=== PATIENT | female | born 1990 | race Caucasian/White ===

== ENCOUNTER 2023-12-03 13:37 | Outpatient (CLI) | payer BC, SELFPAY ==
--- NOTE | 2023-12-03 13:45 | CRLHL7_ITS ---
For Patients: As a result of the Century Cures Act, medical imaging exams and procedure reports are released immediately into your electronic medical record. You may view this report before your referring provider. If you have questions, please contact your health care provider. INDICATION: First trimester scan, establish dates. COMPARISON: None. TECHNIQUE: Real-time fischer-scale imaging of the pelvis was performed. FINDINGS: Sonographic imaging demonstrates a single living intrauterine gestation. The embryo demonstrates a regular cardiac rate measuring 165 beats per minute. The embryo`s crown-rump length measurement of 2.2 cm corresponds to a gestational age of 9 weeks 0 days with a sonographic due date of July 07, 2024. There is a normal-appearing yolk sac measuring up to 3.4 mm. There are no gross abnormalities noted within the embryo at this early state of development. The placenta has not yet developed. The gestational sac has a normal appearance. Trace perigestational/subchorionic hemorrhage inferior to the gestational sac. The amount of fluid within the sac appears appropriate for gestational age. The cervix is closed. The myometrium appears normal. The right ovary is of normal size measuring 3.1 x 1.3 x 2.3 cm. Small right ovarian corpus luteum cyst of measuring 1.6 x 1.2 x 1.7 cm. The left ovary is not seen. There are no suspicious fluid collections noted in the cul-de-sac. IMPRESSION: Normal first trimester OB ultrasound exam. Gestational age calculated at 9 weeks 0 days with a sonographic due date of July 07, 2024. Dictated by Harley Patton MD @ 12/03/2023 3:47:06 PM (Electronically Signed)
== END 2023-12-03 13:38 | disposition home or self-care (01) ==
LOC: US 13:37
PROVIDERS: Visit Provider Registered Nurse
DX: Z34.91 Encounter for supervision of normal pregnancy, unspecified, first trimester (principal); Z3A.09 9 weeks gestation of pregnancy
CPT/HCPCS: 76817; 82728; 86592; 86703; 86704; 86706; 86762; 86787; 86803; 86850; 86900; 86901; 87086; 87340; 87491; 87591

== ENCOUNTER 2024-02-23 12:38 | Outpatient (CLI) | payer BC, SELFPAY ==
--- NOTE | 2024-02-23 13:00 | CRLHL7_ITS ---
For Patients: As a result of the Century Cures Act, medical imaging exams and procedure reports are released immediately into your electronic medical record. You may view this report before your referring provider. If you have questions, please contact your health care provider. HISTORY: anatomic survey. COMPARISON: Early OB ultrasound from 12/03/2023. TECHNIQUE: Ultrasound examination of the is performed with transabdominal technique. FINDINGS: A single intrauterine gestation is seen in breech presentation with regular cardiac activity at 144 beats per minute. The placenta is posterior and is free of the cervical os. The placental grade is 0 and the amniotic fluid volume is normal. Single deepest vertical pocket: Normal at 5.5 cm. The cervix is nondilated and measures 3.6 centimeters, normal length. BPD: 4.8 cm 20 weeks 3 days HC: 18.8 cm 21 weeks 1 day AC: 16.5 cm 21 weeks 4 days. Seventy-fifth percentile FL: 3.6 cm 21 weeks 3 days. The estimated age by ultrasound is 21 weeks 1 day, with an estimated date of delivery of 07/04/2024. This correlates well with the clinical age of 20 weeks 4 days the previous ultrasound. The ultrasound ratios are normal. The estimated weight of 420 grams is at the 87th percentile based on the clinical dates. The anatomic survey demonstrates normal appearing intracranial structures with a normal septum pellucidum and normal cerebellum. The nuchal thickness is normal at 3 mm, and the lateral ventricle is normal in diameter at 6 mm. The upper lip, 4 chamber heart, left and right ventricular outflow tracts, diaphragm, stomach, cord insertion site, 3-vessel cord, kidneys, bladder and spine are normal in appearance. IMPRESSION: 1. Single intrauterine gestation in breech presentation with regular cardiac activity. 2. Estimated gestational age is 21 weeks 1 day. 3. There has been appropriate interval growth. 4. The estimated weight of 420 grams is at the 87th percentile based on the clinical dates. Dictated by Duke Caledron MD @ 02/25/2024 12:26:36 PM (Electronically Signed)
== END 2024-02-23 12:39 | disposition home or self-care (01) ==
LOC: US 12:39
PROVIDERS: Visit Provider Registered Nurse
DX: Z34.92 Encounter for supervision of normal pregnancy, unspecified, second trimester (principal); Z3A.21 21 weeks gestation of pregnancy
CPT/HCPCS: 76805

== ENCOUNTER 2024-04-17 14:06 | Outpatient (CLI) | payer BC, SELFPAY | END 2024-04-17 14:07 | disposition home or self-care (01) | LOC: NFLDREF 14:07 | PROVIDERS: Visit Provider Physician Assistant | DX: Z34.93 Encounter for supervision of normal pregnancy, unspecified, third trimester (principal); O26.899 Other specified pregnancy related conditions, unspecified trimester; Z67.91 Unspecified blood type, Rh negative; R73.09 Other abnormal glucose; Z3A.28 28 weeks gestation of pregnancy | CPT/HCPCS: 86592; 86850; J2791 ==

== ENCOUNTER 2024-04-20 08:17 | Outpatient (CLI) | payer BC, SELFPAY | END 2024-04-20 08:18 | disposition home or self-care (01) | LOC: NFLDREF 04-28 08:09 | PROVIDERS: Visit Provider Physician Assistant | DX: R73.09 Other abnormal glucose (principal) | CPT/HCPCS: 82951; 82952 ==

== ENCOUNTER 2024-05-31 15:30 | Outpatient (CLI) | payer BC, SELFPAY | END 2024-05-31 15:31 | disposition home or self-care (01) | LOC: FRMREF 15:31 | PROVIDERS: Visit Provider Advanced Practice Midwife | DX: Z34.93 Encounter for supervision of normal pregnancy, unspecified, third trimester (principal); Z3A.34 34 weeks gestation of pregnancy | CPT/HCPCS: 82728 ==

== ENCOUNTER 2024-06-16 15:03 | Outpatient (CLI) | payer BC, SELFPAY | END 2024-06-16 15:04 | disposition home or self-care (01) | LOC: NFLDREF 06-18 02:30 | PROVIDERS: Visit Provider Advanced Practice Midwife | DX: O24.410 Gestational diabetes mellitus in pregnancy, diet controlled (principal); Z3A.36 36 weeks gestation of pregnancy | CPT/HCPCS: 87081; 87653 ==

== ENCOUNTER 2024-06-23 13:53 | Outpatient (CLI) | payer BC, SELFPAY ==
--- NOTE | 2024-06-23 14:00 | CRLHL7_ITS ---
For Patients: As a result of the Century Cures Act, medical imaging exams and procedure reports are released immediately into your electronic medical record. You may view this report before your referring provider. If you have questions, please contact your health care provider. OBSTETRICAL ULTRASOUND ??? FOLLOW-UP, 06/23/2024 INDICATION: GDM, growth. CLINICAL HISTORY: ANA by LMP: 07/08/2024 Gestational Age: 37 weeks 6 days COMPARISON: 02/23/2024, 12/03/2023 TECHNIQUE: Real-time fischer-scale imaging of the fetus was performed transabdominal. FINDINGS: Fetus: Single Cervix: Not visualized positioning: Vertex Amniotic fluid: 7.9 cm SDP Placenta technique: Transabdominal Placenta position: Posterior heart rate: 138 bpm BIOMETRY: BPD: 9.5 cm, 38 weeks 4 days, 86.3% HC: 34.8 cm, 40 weeks 3 days, 85.7% AC: 37.4 cm, 41 weeks 2 days, greater than 97% FL: 7.5 cm, 38 weeks 3 days, 66.5% FL/AC Ratio: 20.09% HC/AC ratio: 0.93 EFW: 4040 grams; 8 lbs. 15 oz. age by this ultrasound: 39 weeks 5 days ANA by this ultrasound: 06/25/2024 Percentile by ANA: Greater than 97% IMPRESSION: 1. Sonographic gestational age is 39 weeks 5 days and sonographic due date is 06/25/2024. Sonographic age is 13 days ahead of the clinical age. 2. Estimated weight is greater than 97th percentile. Abdominal circumference is greater than 97th percentile. TREVOR CHAVEZ M.D. Diagnostic Radiologist [email or web address] Transcribed: 12:[address]/Dictated by: Trevor Chavez MD @ 06/25/2024 9:01:00 PM (Electronically Signed)
== END 2024-06-23 13:54 | disposition home or self-care (01) ==
LOC: US 13:53
PROVIDERS: Visit Provider Advanced Practice Midwife
DX: O24.410 Gestational diabetes mellitus in pregnancy, diet controlled (principal); O36.63X0 Maternal care for excessive fetal growth, third trimester, not applicable or unspecified; Z3A.37 37 weeks gestation of pregnancy
CPT/HCPCS: 76816

== ENCOUNTER 2024-07-04 06:21 | Inpatient (IN) | payer BC, SELFPAY ==
[2024-07-04] VITALS (17 sets, daily range): BP systolic 113–153; BP diastolic 60–83; PULSE 72–109; RESP 16–20; TEMP 36.7–36.8; O2SAT 96–97
--- NOTE | 2024-07-04 06:41 | P.LDBA_ITS ---
Subjective History of Present Illness Narrative: Christi is a 33 yo at 39 3/7 weeks gestation being admitted to Labor and Delivery for spontaneous onset of labor. She reports contractions woke her up at 2 am. They started to become more regular around 4ish. At that time she had some bloody show. She denies any leaking of fluid. She was seen and evaluated yesterday for rule out ROM. Since she discharged from triage, she denies any additional leaking of fluid. She is coping well in labor. She has had multiple episodes of emesis this morning. She is supported in labor by her Edi. Her full history and physical was dictated by Taryn Lin CNM on 06/23/2024. Please see this for details. Specific Issues/Plans G 1 P 0 Partner: Edi Baby: Boy! H&P done by Taryn Lin CNM on 06/23/24 # BMI 32.2 and primip A1C: 5.3 Recommend daily low dose aspirin starting at 12 weeks to decrease risk of preeclampsia # Stress urinary incontinence for years. Worsening during . Referral placed for pelvic floor PT. # Anxiety. Never taken medication. Interested in seeing a therapist. Therapy referral placed. 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 Should have an abdominal US or CT to look for renal anomaly in the patient: does not need to be in the . # Hep B nonimmune. Discussed on 01/05/2024. Plans repeating the Hep B immunization course after . # Rh negative, her spouse is Rh(+). Rhogam at 28wks- done 04/17/24 # Celiac disease. Well controlled. # Gestational diabetes, diet controlled 1 hour GTT:165 3 hour GTT: 96H, 185H, 153, 122 Nutrition referral placed 04/20/2024 Weekly testing starting at 40 weeks? Growth at 37.6?weeks, >97% (4040g), SDP 7.9 Delivery recommended 39 0/7-40 6/7 weeks? Flu: Declined on 01/05/24. Covid: Declined on 01/05/24. [place]: Low risk for aneuploidy, male Tdap: Given 05/16/23 OB - Problem Based A/P Additional Plan (1) Pain during labor: Status: Acute (2) Spontaneous onset of labor: Status: Acute (3) GDM (gestational diabetes mellitus), class A1: Status: Acute (4) Anxiety: Status: Acute (5) 39 weeks gestation of : Status: Acute (6) Rh negative, antepartum: Status: Acute (7) Asthma: Status: Acute Plan ASSESSMENT:? 33 yo at 39.3 weeks gestation? complicated by:?Prepregnancy BMI 32, stress urinary incontinence, anxiety, bicornuate vs septate uterus, Hep b non-immune, RH negative, celiac disease, Gestational Diabetes diet controlled Labor type: Spontaneous, Early labor? Reassuring FHR Labor complicated by: GDM? GBS negative Rh negative? ? PLAN:? 1. Routine intrapartum cares as ordered. Continue with expectant management? 2. Monitoring per policy, continuous 3. Planning unmedicated . Desires water . Consent signed. Hep C negati ve. Candidate for analgesia of choice, if desired.?? 4. Patient encouraged to reposition and ambulate to promote physiologic labor and .? 5. GDM, will monitor blood sugar per protocol. She ate on the way in, will check a 2 hour postprandial this morning. 6. Anticipate ? Delivery/Labor/Induction Plan Plan: expectant management OB Result Labs Blood Type: A (-) negative OB Exam Physical Exam Vital signs: Pulse Rate 98 07/04/24 06:43 Blood Pressure 125/77 07/04/24 06:43 Blood Pressure Mean 93 07/04/24 06:43 Narrative: Vitals Reviewed Constitutional:? Alert and oriented x3 HEENT:? Normocephalic, atraumatic Neck:? Supple Lungs:? Clear to auscultation bilaterally Heart:? Regular rate and rhythm, no murmur, rub or gallop Abdomen:? Soft, nontender, and gravid. Vertex by Kashmir's, confirmed with cervical exam. Extremities:? No edema or erythema Cervix: 6 cm/80%/-1/vertex NST: 140 bpm with difficulty monitoring due to maternal position, RN working on getting a better FHR tracing; contractions every 2-3 minutes lasting Detailed Labor and Delivery Exam Patient Gravid: Yes
[2024-07-04] MEDS: OXYTOCIN 10 UNIT/ML INJ IM (10:39)
[2024-07-04] MEDS: LIDOCAINE 1 % PF 30 ML INJECTION (10:57)
[2024-07-04] MEDS: lidocaine HCL 2 % JELLY (TOP) STERILE 6 ML TOPICAL (10:57)
--- NOTE | 2024-07-04 11:27 | W.PM.VAGDE_ITS ---
OB Procedure Vag Delivery Mother Details Mother Details: The patient is a 33 year-old, 1, Para 0, admitted on 07/04/24 at 39.3 Days gestation. : 1 Para: 1 Weeks Gestation: 39.3 Admission Date: 07/04/24 Additional Details Amniotic Membrane Status: SROM Amniotic Membrane Rupture Date: 07/04/24 Amniotic Membrane Rupture Time: 09:27 Amniotic Membrane Fluid Description: Clear Analgesia/Anesthesia Type: None Waterbirth: Yes Pitcoin: Yes ([facility] only) Intrapartal Events: None Labor Onset: 06:18 Complete: 09:56 (presumed complete with spontaneous pushing ) Pushin:56 Heart: heart tones during second stage were difficult to trace due to maternal po sition, short second stage, and rapid descent. FHR traced and auscultation 115-125 and no decreases traced or heard. Delivery Details Delivery Date: 07/04/24 Delivery Time: 10:15 Route of delivery: Infant Gender: Male Viability: Alive; Heart Rate Present Position at Delivery: OA Delivery Details: Patient was admitted for SROM and progressed normally. SROM noted at 0927 with clear fluid. Patient was presumed complete with spontaneous pushing at 0956. of a viable male at 1015 in recumbent position in the tub. Vertex delivered OA. No nuchal cord or shoulder. Body delivered easily and without incident. passed to mothers abdomen with a vigorous cry. Cord was clamped and cut at > 5 minutes. APGARS were 8 at one minute and 9 at five minutes respectively. Mouth was bulb suctioned. Intact placenta with a 3 vessel cord delivered spontaneously at 1045. Significant trailing membranes which took over 10 minutes to tease out with a ring forceps. Did appear to deliver completely but I did review signs of retained membranes including infection and bleeding. Fundus firm. 2nd degree identified and repaired in typical fashion. QBL 206mL in the dr miguel and a weighed clot and EBL 100 in the tub for a total blood loss of 306. Mother and baby stable; mother plans to breastfeed. Infant weight 9lb 0oz.? 1 Minute Interval Total Score: 8 5 Minute Interval Total Score: 9 Additional Details Shoulder Dystocia: No Placenta Delivery Time: 10:45 Placental Delivery Description: Spontaneous Delivery repair: Vicryl Procedure Done: Global Blood Loss: 306 (QBL 206, EBL 100) Laceration: Perineal - 2nd Degree Episiotomy Description: None Blood Loss Measurement Type: QBL Bakri Used: No Sponge/Need Count Correct: Yes Cord Vessel Description: 3 Vessels Event Summary Status: Mother and infant were stable after delivery. Disposition: floor
[2024-07-05 05:20] VITALS: BP 117/82; PULSE 84; RESP 16; TEMP 36.3; O2SAT 97
--- NOTE | 2024-07-05 07:49 | P.OBPN_ITS ---
OB - PN:Subj Subjective Date Seen: 07/05/24 Narrative: Christi is a 33 year old who was admitted for and proceeded to have a vaginal with a 2nd degree laceration that was repaired.The patient feels well.? The pain is well controlled with current medications.? She has no new co mplaints.? Urinary output is adequate and she is voiding without difficulty.? Has a good appetite, is tolerating a general diet, is passing flatus, and has not had a bowel movement.? Has small amount of rubra lochia.? She is ambulating well. She is and nipple whitley have assisted with the latch. She is also utilizing S&S. Nursing and are working with her. ? OB - PN: Obj Exam Physical Exam: Vital signs: Temp Pulse Resp BP Pulse Ox O2 Del Method 97.4 F L 84 16 117/82 97 Room Air 07/05/24 05:20 07/05/24 05:20 07/05/24 05:20 07/05/24 05:20 07/05/24 05:20 07/05/24 05:20 Narrative: GENERAL APPEARANCE:? normal affect, alert, no distress MOOD:? appropriate CHEST:? clear to auscultation HEART:? regular rate and rhythm ABDOMEN:? soft, non-tender the uterine fundus is At Umbilicus, Midline and is appropriate for the stage of recovery. PERINEUM:? mild edema of the perineum, there is a Perineal Laceration,? with no erythema. Well approximated with mild edema. EXTREMITIES:? normal and minimal edema OB - PN: A/P Delivery Assessment and Plan (1) care and examination of lactating mother: Status: Acute (2) GDM (gestational diabetes mellitus), class A1: Status: Acute (3) Anxiety: Status: Acute (4) Rh negative, antepartum: Status: Acute (5) Asthma: Status: Acute Plan Comments: PP day #1 Routine care Should see as desired Consider 2 hr glucose in the morning Anticipate discharge 07/06/2024
[2024-07-05 08:21] VITALS: BP 117/80; PULSE 82; RESP 16; TEMP 36.4; O2SAT 97
[2024-07-05 09:46] VITALS: BP 117/80; PULSE 78; RESP 18; TEMP 36.8; O2SAT 97
[2024-07-05 12:44] VITALS: BP 103/71; PULSE 96; RESP 16; TEMP 36.4; O2SAT 96
[2024-07-06 00:08] VITALS: BP 125/81; PULSE 72; RESP 16; TEMP 36.4; O2SAT 95
[2024-07-06 08:12] LABS: Glucose Fasting 86 mg/dl (70-95)
[2024-07-06 08:19] VITALS: BP 113/80; PULSE 81; RESP 16; TEMP 36.8; O2SAT 95
--- NOTE | 2024-07-06 08:36 | P.DS_ITS ---
DS: Providers Provider Date Seen: 07/06/24 Date of admission: 07/04/24 06:21 Primary care physician: Not a Local Provider Admitting Clinician: Vivienne Ritter CNM Attending Physician on discharge: María Lin CNM Date of Discharge: 07/06/24 DS: Diagnosis Discharge Diagnosis (1) care and examination of lactating mother: Status: Acute (2) GDM (gestational diabetes mellitus), class A1: Status: Acute (3) Rh negative, antepartum: Status: Acute Exam Narrative: Exam Narrative: VSS, afebrile GENERAL APPEARANCE: ?normal affect, alert, no distress MOOD: ?appropriate HEENT: normocephalic, neck supple, full ROM CHEST: ?Symmetrical chest wall movement. ?Normal respiratory effort. ?Clear to auscultation HEART: ?regular rate and rhythm ABDOMEN: ?soft, non-tender. Uterine fundus is firm, at Umbilicus, Midline and is appropriate for the stage of recovery. ?Bowel sounds present. PERINEUM: ?mild edema of the perineum, there is a 2nd degree laceration that is healing well. EXTREMITIES: ?normal and 2+ edema Const: Vital Signs, click to edit/add: Vital Signs - 24 hr 07/05/24 09:46 07/05/24 12:44 07/06/24 00:08 Temperature 98.2 F 97.5 F L 97.6 F Pulse Rate 78 Pulse Rate [Pulse Oximeter] 96 72 Respiratory Rate 18 16 16 Blood Pressure 117/80 Blood Pressure [Le ft Arm] 103/71 125/81 Pulse Oximetry 97 96 95 Oxygen Delivery Me thod Room Air Room Air Room Air 07/06/24 08:19 Temperature 98.3 F Pulse Rate Pulse Rate [Pulse Oximeter] 81 Respiratory Rate 16 Blood Pressure Blood Pressure [Le ft Arm] 113/80 Pulse Oximetry 95 Oxygen Delivery Me thod Room Air Documenting provider has reviewed patient's vital signs: yes OB - DS: Summary Hospital Course Hospital Course: Christi is a 33 y.o. who was admitted to [facility] & [facility] for labor. ?She had an uncomplicated NVD.?The patient feels well. ?The pain is well controlled with current medications. ?She has no new complaints. ?She is breast feeding and reports things are going well.? the patient has done well.? Vitals have been stable.? She has remained afebrile.? Has a good appetite, is tolerating a general diet. ?She is voiding without difficulty.? She is passing gas and has not had a bowel movement.? She is ambulating and denies any dizziness.? Has Small amount of rubra lochia. ?She is undecided on what she is planning for prevention. She is currently doing her 2 hour glucose tolerance test. Peripartum Data delivery method: Vaginal Laceration description: Perineal - 2nd Degree complications: none Gender: Male Discharge Plan: Home Status at Discharge Functional status at discharge: independent ambulation Overall status at discharge: patient is progressing back to baseline Time Spent with Patient Time attestation: Total time spent providing and/or coordinating discharge services: Time spent: Less than 30 minutes Discharge Plan Discharge Disposition: Home, Self-Care Date of Admission: 07/04/24 06:21 Attending Provider on Discharge: María Lin Primary Care Provider: Provider,Not a Local Condition: Stable Anticipated Discharge Date/Time: 07/06/24 12:00 Discharge Medications: New acetaminophen 500 mg Tablet 1,000 mg PO Q6H PRNQty: 0 0RF docusate sodium 100 mg Capsule 100 mg PO DAILY Qty: 90 0RF ibuprofen 600 mg Tablet 600 mg PO Q6H PRNQty: 60 0RF Continued DHA 200 mg capsule 200 mg PO DAILY Co C-05-[place] E-Fish Oil 25-150-200 mg-mg-unit capsule 1 cap PO ONCE magnesium glycinate 100 mg tablet 100 mg PO QDAY Zyrtec 10 mg capsule 10 mg PO QDAY PRN celecoxib [Celebrex] 50 mg capsule 50 mg PO BID Discharge Orders: Discharge Order (Routine); Ordered 07/06/24 Ordered By: María Lin Patient Education: OB Over the Counter Medication Information, OB Vaginal/Breast Feeding Additional Instructions: Discharge instructions were reviewed with the patient including signs and symptoms of infection and home going medications Nothing vaginally for 6 weeks: no tampons or intercourse Off Work or School for 6 weeks Symptoms to report to doctor: * Bleeding that saturates more than one pad per hour * Passing clots larger than the size of a golf ball * Pain not relieved by prescribed medication * Fever above 100.4 degrees Fahrenheit * A foul vaginal odor * Difficulty in emotions, mood, and functions * Thoughts of hurting yourself and/or * Painful, reddened area in your breast * Any drainage, redness, or tenderness in your IV/epidural site * Severe headache that doesn't improve after taking medications * Changes in vision, including temporary loss of vision, blurred vision, and/or light sensitivity * Upper abdominal pain (usually under ribs on the right side) * Decrease in urination or painful, frequent urinating * Chest pain * Shortness of breath * Tenderness or pain with redness and/swelling in the calf(s) of your leg 2-week visit: discuss infant feeding concerns, review control options and screen for anxiety/depression. 6-week visit for an annual exam. consultation services are available to all mothers and babies for the first year after delivery.? To make an appointment, please call [phone]. Activity Level: Activity as Tolerated Discharge Diet: Regular Follow Up Appointments: [facility] [Provider Group] Forms: [place] [facility] Info Instructions
[2024-07-06] MEDS: DOCUSATE SODIUM 100 MG CAPSULE PO (08:46)
[2024-07-06 10:22] LABS: Glucose 2 Hour 65 mg/dl (70-155)
== END 2024-07-06 13:20 | disposition home or self-care (01) | DRG 560 ==
LOC: OB OUT 06:21 → OB 06:21
PROVIDERS: Advanced Practice Midwife; Admitting Provider Advanced Practice Midwife; Visit Provider Advanced Practice Midwife
DX: O24.420 Gestational diabetes mellitus in childbirth, diet controlled (principal); Z3A.39 39 weeks gestation of pregnancy; Z37.0 Single live birth; Z79.82 Long term (current) use of aspirin; Z86.2 Personal history of diseases of the blood and blood-forming organs and certain disorders involving the immune mechanism; O99.62 Diseases of the digestive system complicating childbirth; K90.0 Celiac disease; O99.344 Other mental disorders complicating childbirth; F41.9 Anxiety disorder, unspecified; N39.3 Stress incontinence (female) (male); J45.909 Unspecified asthma, uncomplicated; O26.893 Other specified pregnancy related conditions, third trimester; Z67.11 Type A blood, Rh negative; O70.1 Second degree perineal laceration during delivery; Z78.9 Other specified health status
CPT/HCPCS: 36415; 59025; 82947; 82950; 84112; 85461; 86592; 88307; G0463; A9270; J2003; J2590; J2791

== ENCOUNTER 2025-03-15 14:58 | Outpatient (CLI) | payer BC, SELFPAY | END 2025-03-15 14:59 | disposition home or self-care (01) | LOC: NFLDREF 03-19 15:36 | PROVIDERS: Visit Provider Nurse Practitioner Family | DX: R53.83 Other fatigue (principal); Z13.6 Encounter for screening for cardiovascular disorders | CPT/HCPCS: 80053; 80061; 82728; 83540; 83550; 84439; 84443 ==